=== PATIENT | female | born 2000 | race Two or more races ===

== ENCOUNTER 2025-01-25 16:45 | Emergency (ER) | payer OTHER ==
[~2025-01-25] VITALS: Ht 167.6 cm; Wt 90.7 kg
[2025-01-25] MEDS ORDERED: IRON240 MG (17:09)
[2025-01-25 18:51] LABS: BASO % 0.4 % (0.1-1.2); EOS % 2.4 % (0.7-7.0); HEMATOCRIT 32.1 % (34.1-44.9); HEMOGLOBIN 10.4 g/dL (11.2-15.7); LYMPH # 3.04 (1.18-3.74); LYMPH % 24.3 % (19.3-53.1); MEAN CORPUSCULAR HEMOGLOBIN 26.7 pg (25.6-32.2); MONO # 1.01 (0.24-0.82); MONO % 8.1 % (4.7-12.5); NEUT # 8.05 (1.56-6.13); NEUT % 64.5 % (34.0-71.1); PLATELET COUNT 240 K/uL (163-369); RED BLOOD COUNT 3.89 M/uL (3.93-5.22); RED CELL DISTRIBUTION WIDTH 14.4 % (11.6-14.4)
[2025-01-25 19:31] LABS: ALBUMIN 3.1 gm/dL (3.4-5.0); BILIRUBIN TOTAL 0.32 mg/dL (0.3-1.2); CREATININE SERUM 0.56 mg/dL (0.55-1.02); GLOBULINA 4.2 G/DL (2.4-3.5); POTASSIUM 3.81 mEq/L (3.5-5.1); TOTAL PROTEIN 7.3 gm/dL (6.4-8.2)
== END 2025-01-25 21:06 ==
LOC: ER 16:45
PROVIDERS: General Practice
DX: R00.2 Palpitations (principal); D64.89 Other specified anemias

== ENCOUNTER 2025-05-28 16:35 | Inpatient (IN) | payer OTHER ==
[~2025-05-28] VITALS: Ht 167.6 cm; Wt 230.0 kg
[~2025-05-28 16:35] MED LIST: IRON240 MG
[2025-05-28] MEDS ORDERED: PRENATAL + DHA1 EAC1 PO (16:43)
[2025-05-28] MEDS ORDERED: ACETAMINOPHEN 500 MG GEL..CAP PO ONE (19:15)
[2025-05-28 20:08] LABS: BASO % 0.4 % (0.1-1.2); EOS # 0.28 (0.04-0.54); EOS % 1.9 % (0.7-7.0); LYMPH # 3.27 (1.18-3.74); LYMPH % 22.1 % (19.3-53.1); MEAN PLATELET VOLUME 10.80 fl (9.4-12.4); MONO # 1.34 (0.24-0.82); MONO % 9.0 % (4.7-12.5); NEUT # 9.78 (1.56-6.13); NEUT % 66.0 % (34.0-71.1); RED CELL DISTRIBUTION WIDTH 15.6 % (11.6-14.4)
[2025-05-28 20:55] LABS: ALT/SGPT 29.0 U/L (12-78); AST/SGOT 24.0 U/L (15-37); BILIRUBIN TOTAL 0.56 mg/dL (0.3-1.2); BUN CREA RATIO 17.0 (7.0-25.0); CREATININE SERUM 0.42 mg/dL (0.55-1.02); GFR 183.83; GLOBULINA 4.4 G/DL (2.4-3.5); GLUCOSE FASTING 89.0 mg/dL (65-100); OSMOLALITY SERUM 277.0 MOSM/KG (275-295)
[2025-05-28 22:02] LABS: URINE APPEARANCE Clear; URINE BILIRRUBIN Negative (NEGATIVE); URINE BLOOD Negative; URINE COLOR Yellow; URINE GLUCOSE Negative (NEGATIVE); URINE KETONE 15 (NEGATIVE); URINE LEUKOCYTE Moderate; URINE NITRATE Negative; URINE PROTEIN Negative (NEGATIVE); URINE UROBILINOGEN 0.2 E.U./dl
[2025-05-28 22:03] LABS: URINE BACTERIA 2846.3 uL (0.0-1933); URINE EPITHELIAL CELLS 68.7 uL (0.0-38.8); URINE RBC 12.9 uL (0.0-20.8); URINE WBC 52.9 uL (0.0-23.2)
[2025-05-28 22:20] LABS: TYPE CELLS RENAL TUBULAR; URINE CAST 0.87 uL (0.0-1.40)
[2025-05-28] MEDS ORDERED: CEFAZOLIN SODIUM 1,000 MG VIAL IV ONE (22:45)
[2025-05-28] MEDS ORDERED: 0.9 % SODIUM CHLORIDE 500 ML IV ONE (22:45)
[2025-05-29] MEDS ORDERED: CEFAZOLIN SODIUM 1,000 MG VIAL IV SCH
[2025-05-29 09:27] VITALS: BP 95/65; O2SAT 100
[2025-05-29 12:23] VITALS: BP 109/70
[2025-05-29 16:06] VITALS: BP 101/69
[2025-05-30 01:20] VITALS: BP 102/68
[2025-05-30 06:03] VITALS: BP 90/60
[2025-05-30 08:15] VITALS: BP 100/60
[2025-05-30] MEDS ORDERED: SOD FERRIC GLUC COMPLX/SUCROSE 125 MG in 0.9 % SODIUM CHLORIDE 100 ML IV SCH (20:55)
[2025-05-30] MEDS ORDERED: FAMOTIDINE/PF 20 MG/2 ML VIAL IV STA (22:27)
[2025-05-30] MEDS ORDERED: INDOMETHACIN 50 MG CAPSULE PO STA (22:30)
[2025-05-31 01:24] VITALS: BP 93/66
[2025-05-31 04:00] VITALS: BP 98/64
[2025-05-31] MEDS ORDERED: SOD FERRIC GLUC COMPLX/SUCROSE 62.5 MG/5 ML AMPUL IV SCH (09:00)
[2025-05-31] MEDS ORDERED: PNV,CALCIUM 72/IRON/FOLIC ACID 1 TAB TABLET PO SCH (09:00)
[2025-05-31 09:19] VITALS: BP 103/66
== END 2025-05-31 15:50 | disposition home or self-care (01) | DRG 833 ==
LOC: ER 16:37 → SEC-K 05-29 09:23 → OB/GYN 05-29 09:23
PROVIDERS: General Practice; ADMIT Specialist; ATTEND Specialist
PROC: BY4FZZZ Ultrasonography of Third Trimester, Single Fetus (ICD-10-PCS; 2025-05-28)
PROC: BT43ZZZ Ultrasonography of Bilateral Kidneys (ICD-10-PCS; 2025-05-28)
PROC: 4A1HXCZ Monitoring of Products of Conception, Cardiac Rate, External Approach (ICD-10-PCS; principal; 2025-05-29)
DX: O23.42 Unspecified infection of urinary tract in pregnancy, second trimester (principal); Z3A.33 33 weeks gestation of pregnancy

== ENCOUNTER 2025-07-06 13:00 | Inpatient (IN) | payer OTHER ==
[~2025-07-06] VITALS: Ht 167.6 cm; Wt 108.9 kg
[~2025-07-06 13:00] MED LIST changes: +PRENATAL + DHA1 EAC1 PO
[2025-07-10 05:29] VITALS: BP 114/84; BP 127/61
[2025-07-10] MEDS ORDERED: AMPICILLIN SODIUM 2,000 MG VIAL IV ONE (06:00)
[2025-07-10 07:02] VITALS: BP 107/68
[2025-07-10 07:11] VITALS: BP 108/63
[2025-07-10] MEDS ORDERED: ACETAMINOPHEN 500 MG GEL..CAP PO PRN (07:30)
[2025-07-10] MEDS ORDERED: LIDOCAINE HCL 1% 10ML VIAL IJ ONE (07:30)
[2025-07-10] MEDS ORDERED: ERYTHROMYCIN BASE OPHT 1GM EACH TUBE OP ONE (07:30)
[2025-07-10] MEDS ORDERED: OXYTOCIN 1,000 ML IV SCH (07:30)
[2025-07-10] MEDS ORDERED: CHLORHEXIDINE GLUCONATE 120 ML BOTTLE TOP ONE (07:30)
[2025-07-10 07:40] VITALS: BP 116/69
[2025-07-10] MEDS ORDERED: BENZOCAINE/MENTHOL 90 ML BOTTLE TOP SCH (09:00)
[2025-07-10] MEDS ORDERED: HYDROCORTISONE 2.5% 30 GM TUBE RECTAL SCH (09:00)
[2025-07-10 09:06] VITALS: BP 117/77
[2025-07-10 16:00] VITALS: BP 90/63
[2025-07-11 00:52] VITALS: BP 99/61
[2025-07-11 02:02] LABS: BASO % 0.5 % (0.1-1.2); EOS # 0.12 (0.04-0.54); EOS % 0.7 % (0.7-7.0); LYMPH # 3.44 (1.18-3.74); LYMPH % 21.2 % (19.3-53.1); MEAN PLATELET VOLUME 11.40 fl (9.4-12.4); MONO # 1.32 (0.24-0.82); MONO % 8.1 % (4.7-12.5); NEUT # 11.20 (1.56-6.13); NEUT % 68.9 % (34.0-71.1); RED CELL DISTRIBUTION WIDTH 21.8 % (11.6-14.4)
[2025-07-11 08:22] VITALS: BP 110/73
[2025-07-11] MEDS ORDERED: FERROUS SULFATE 325 MG TABLET.EC PO SCH (09:00)
[2025-07-11 22:53] VITALS: BP 109/63
[2025-07-12 03:09] VITALS: BP 116/78
== END 2025-07-12 17:39 | disposition home or self-care (01) | DRG 807 ==
LOC: OB/GYN 07-10 05:55 → LDR 07-10 05:55 → OB/GYN 07-10 08:31
PROVIDERS: ADMIT Specialist; ATTEND Specialist
PROC: 10E0XZZ Delivery of Products of Conception, External Approach (ICD-10-PCS; principal; 2025-07-10)
PROC: 0W8NXZZ Division of Female Perineum, External Approach (ICD-10-PCS; 2025-07-10)
PROC: 4A1HXCZ Monitoring of Products of Conception, Cardiac Rate, External Approach (ICD-10-PCS; 2025-07-10)
DX: O99.824 Streptococcus B carrier state complicating childbirth (principal); Z37.0 Single live birth; Z3A.39 39 weeks gestation of pregnancy

== ENCOUNTER 2025-07-09 21:10 | Outpatient (CLI) | payer OTHER ==
[~2025-07-09] VITALS: Ht 167.6 cm; Wt 108.9 kg
[2025-07-09 20:30] VITALS: BP 114/84
[2025-07-09] MEDS ORDERED: RINGERS SOLUTION,LACTATED 1,000 ML IV SCH (21:30)
[2025-07-09 21:50] LABS: BASO % 0.3 % (0.1-1.2); EOS # 0.12 (0.04-0.54); EOS % 0.9 % (0.7-7.0); LYMPH # 2.96 (1.18-3.74); LYMPH % 21.6 % (19.3-53.1); MEAN PLATELET VOLUME 11.50 fl (9.4-12.4); MONO # 0.94 (0.24-0.82); MONO % 6.9 % (4.7-12.5); NEUT # 9.57 (1.56-6.13); NEUT % 69.8 % (34.0-71.1)
[2025-07-09 21:56] LABS: URINE APPEARANCE Clear; URINE BILIRRUBIN Negative (NEGATIVE); URINE BLOOD Negative; URINE COLOR Yellow; URINE GLUCOSE Negative (NEGATIVE); URINE KETONE Trace (NEGATIVE); URINE LEUKOCYTE Trace; URINE NITRATE Negative; URINE PROTEIN Negative (NEGATIVE); URINE UROBILINOGEN 0.2 E.U./dl
[2025-07-09 22:00] LABS: URINE BACTERIA 373.1 uL (0.0-1933); URINE EPITHELIAL CELLS 32.1 uL (0.0-38.8); URINE RBC 3.2 uL (0.0-20.8); URINE WBC 12.7 uL (0.0-23.2)
[2025-07-09 22:10] LABS: RED CELL DISTRIBUTION WIDTH 21.2 % (11.6-14.4)
[2025-07-09 22:13] LABS: URINE CAST 0.00 uL (0.0-1.40)
[2025-07-09 22:15] LABS: INR 0.96
[2025-07-09 22:20] LABS: ALT/SGPT 23.0 U/L (12-78); AST/SGOT 17.0 U/L (15-37); BILIRUBIN TOTAL 0.41 mg/dL (0.3-1.2); BUN CREA RATIO 22.0 (7.0-25.0); CREATININE SERUM 0.5 mg/dL (0.55-1.02); GFR 150.33; GLOBULINA 3.7 G/DL (2.4-3.5); GLUCOSE FASTING 76.0 mg/dL (65-100); OSMOLALITY SERUM 278.0 MOSM/KG (275-295)
[2025-07-09 23:14] VITALS: BP 103/68
[2025-07-10 03:00] VITALS: BP 127/61
== END 2025-07-10 07:22 | disposition still patient (30) ==
LOC: OBS/DEL 21:10
PROVIDERS: ATTEND Specialist
DX: O26.893 Other specified pregnancy related conditions, third trimester (principal)